=== PATIENT | male | born 1985 | race Caucasian/White ===

== ENCOUNTER 2019-03-25 14:16 | Emergency (ER) | payer OTHER ==
[~2019-03-25] VITALS: Ht 185.4 cm; Wt 111.6 kg
[~2019-03-25 14:16] MED LIST: BENTYL20 MG PO; CITRATE OF MAG296 ML PO; HYDROCODONE-AP1 EAC6 PO; IBUPROFEN 800800 M1 PO; NOHOMEMEDICATIONS; NORCO 5-325 TA1 EACH PO; ROBAXIN 750 MG750 M1 PO; ULTRAM 50MG TAB50 MG PO; VICOPROFEN 2001 EACH PO; ZOFRAN4 MG PO
[2019-03-25] MEDS ORDERED: AMOXICILLIN 50500 MG PO (14:27)
[2019-03-25] MEDS ORDERED: PREDNISONE 20 M20 M1 PO (14:27)
[2019-03-25 14:38] VITALS: BP 115/85
== END 2019-03-25 14:38 ==
LOC: M.ERS 14:16
DX: J32.9 Chronic sinusitis, unspecified (principal); J45.909 Unspecified asthma, uncomplicated; F17.210 Nicotine dependence, cigarettes, uncomplicated; Z88.6 Allergy status to analgesic agent

== ENCOUNTER 2019-06-12 12:10 | Emergency (ER) | payer OTHER ==
[~2019-06-12] VITALS: Ht 185.4 cm; Wt 113.4 kg
[~2019-06-12 12:10] MED LIST changes: +AMOXICILLIN 50500 MG PO; +PREDNISONE 20 M20 M1 PO
[2019-06-12] MEDS ORDERED: NORCO 5-325 TA1 EAC1 PO (13:21)
[2019-06-12] MEDS ORDERED: IBUPROFEN 800800 M1 PO (13:21)
[2019-06-12 13:30] VITALS: BP 125/75
== END 2019-06-12 13:31 | disposition home or self-care (01) ==
LOC: M.ERS 12:10
DX: M25.562 Pain in left knee (principal); J45.909 Unspecified asthma, uncomplicated; F17.210 Nicotine dependence, cigarettes, uncomplicated; Z88.6 Allergy status to analgesic agent

== ENCOUNTER 2019-11-11 00:50 | Emergency (ER) | payer OTHER ==
[~2019-11-11] VITALS: Ht 185.4 cm; Wt 117.9 kg
[~2019-11-11 00:50] MED LIST changes: +NORCO 5-325 TA1 EAC1 PO
[2019-11-11] MEDS ORDERED: TRAMADOL 50 MG50 MG PO (02:06)
[2019-11-11] MEDS ORDERED: DOXYCYCLINE 10100 MG PO (02:06)
[2019-11-11 02:39] VITALS: BP 146/83
== END 2019-11-11 02:39 | disposition home or self-care (01) ==
LOC: M.ERS 00:50
DX: L03.116 Cellulitis of left lower limb (principal); F17.210 Nicotine dependence, cigarettes, uncomplicated; F12.10 Cannabis abuse, uncomplicated; J45.909 Unspecified asthma, uncomplicated; Z88.6 Allergy status to analgesic agent

== ENCOUNTER 2020-06-08 16:35 | Emergency (ER) | payer OTHER ==
[~2020-06-08] VITALS: Ht 185.4 cm; Wt 126.5 kg
[~2020-06-08 16:35] MED LIST changes: +DOXYCYCLINE 10100 MG PO; +TRAMADOL 50 MG50 MG PO
[2020-06-08 16:59] LABS: ABSOLUTE BASOPHILS 0.1 thou/uL (0.0-0.2); ABSOLUTE EOSINOPHILS 0.4 thou/uL (0.0-0.7); ABSOLUTE LYMPHOCYTES 1.6 thou/uL (0.8-5.3); ABSOLUTE MONOCYTES 1.1 thou/uL (0.0-1.2); ABSOLUTE NEUTROPHILS 8.5 thou/uL (1.6-8.1); BASOPHILS 0.6 %; EOSINOPHILS 3.1 %; HEMATOCRIT 46.9 % (42.0-52.0); HEMOGLOBIN 15.8 gm/dL (14.0-18.0); LYMPHOCYTES 14.1 %; MCH 28.1 pg (26.0-34.0); MCHC 33.6 g/dL (28.0-37.0); MCV 83.6 fL (80.0-100.0); MONOCYTES 9.2 %; NUCLEATED RBCS 0 /100WBC; PLATELET COUNT* 264 thou/uL (150-400); RBC 5.61 mil/uL (4.50-6.00); RDW-CV 13.6 % (10.5-14.5); WBC 11.6 thou/uL (4.0-11.0)
[2020-06-08 17:07] LABS: CALCIUM 9.2 mg/dL (8.5-10.1); CREATININE 1.1 mg/dL (0.6-1.3); POTASSIUM 3.8 mmol/L (3.5-5.1)
[2020-06-08 17:09] LABS: APTT 26.3 Seconds (25.0-31.3); PROTIME 11.1 Seconds (9.20-11.50)
[2020-06-08 17:28] LABS: ALBUMIN 3.6 g/dL (3.4-5.0); TOTAL BILIRUBIN 0.7 mg/dL (<0.1-1.0); TOTAL PROTEIN 7.4 g/dL (6.4-8.2)
[2020-06-08] MEDS ORDERED: ZOFRAN ODT4 MG SUBLING (17:30)
[2020-06-08 17:57] VITALS: BP 116/65
--- NOTE | 2020-06-09 12:43 | EKG ---
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1985 Requested By: Miles Crain Order Number: [id number] MD: Chris Roy Measurements Intervals [place] Rate: 109 P: 61 MT: 146 QRS: 77 QRSD: 96 T: 35 QT: 322 QTc: 434 Interpretive Statements Sinus tachycardia Borderline low voltage, extremity leads Baseline wander in lead(s) V2,V3,V4,V5,V6 Compared to ECG 02/03/2013 20:08:39 No significant changes noted Electronically Signed On 06-09-2020 12:43:46 SIGNWRITER by Chris Roy [email or web address] <ELECTRONICALLY SIGNED> By: Chris Roy MD, FAC 06/09/20 1243 1643 1643 Chris Roy MD, [facility] /EPI
== END 2020-06-08 17:58 | disposition home or self-care (01) ==
LOC: M.ERS 16:35
PROVIDERS: Family Medicine
DX: B34.9 Viral infection, unspecified (principal); R11.2 Nausea with vomiting, unspecified; Z20.828 Contact with and (suspected) exposure to other viral communicable diseases; J45.909 Unspecified asthma, uncomplicated; F17.210 Nicotine dependence, cigarettes, uncomplicated; Z88.6 Allergy status to analgesic agent